=== PATIENT | male | born 1955 | race Caucasian/White ===

== ENCOUNTER 2018-04-29 06:45 | Day surgery (SDC) | payer MEDICARE, OTHER ==
[~2018-04-29] VITALS: Ht 170.2 cm; Wt 111.4 kg
[~2018-04-29 06:45] MED LIST: SODIUM CHLORIDE 0.9% 1,000 ML IV ONE
[2018-04-29] MEDS ORDERED: ATOR40TA28 PO (07:44)
[2018-04-29] MEDS ORDERED: GABA-531 PO (07:44)
[2018-04-29] MEDS ORDERED: ALBU8HFA IH (07:44)
[2018-04-29] MEDS ORDERED: METF10004 PO (07:44)
[2018-04-29] MEDS ORDERED: PRED10 PO (07:44)
[2018-04-29] MEDS ORDERED: BUDE10.2 IH (07:44)
[2018-04-29] MEDS ORDERED: HYDR25TA PO (07:44)
[2018-04-29] MEDS ORDERED: LISI-662 PO (07:44)
[2018-04-29] MEDS ORDERED: DOXY150T PO (07:44)
[2018-04-29] MEDS ORDERED: FURO20 PO (07:44)
[2018-04-29 07:48] LABS: GLUCOMETER DEV NAME(LOC) SDS 5; GLUCOSE,POINT OF CARE 196 MG/DL (70-110)
[2018-04-29] MEDS ORDERED: MIDAZOLAM HCL 2 MG/2 ML VIAL ONE (08:15)
[2018-04-29] MEDS ORDERED: FentaNYL CITRATE-PF 100 MCG/2 ML VIAL ONE (08:16)
[2018-04-29] MEDS ORDERED: MethylPREDNISolone SOD SUCC 125 MG/2 ML VIAL IVP ONE (09:15)
[2018-04-29] MEDS ORDERED: MethylPREDNISolone SOD SUCC 125 MG/2 ML VIAL ONE (09:41)
[2018-04-29] MEDS ORDERED: ALBUTEROL SULFATE 2.5 MG/0.5 ML NEB SOLUTION NEB ONE (12:00)
[2018-04-29] MEDS ORDERED: LIDOCAINE HCL 4% 50 ML SOLUTION TP ONE (12:00)
[2018-04-29] MEDS ORDERED: LIDOCAINE HCL 2% 30 ML JELLY TP ONE (12:00)
[2018-04-29] MEDS ORDERED: BENZOCAINE 20% 50 MCG/SPRAY 57 GM TP ONE (12:00)
[2018-04-29] MEDS ORDERED: OXYGEN THERAPY IH SCH (20:00)
== END 2018-04-29 10:25 | disposition home or self-care (01) ==
LOC: SURGERY 06:45
PROVIDERS: ATTEND Internal Medicine Critical Care Medicine
DX: J38.4 Edema of larynx (principal); B37.0 Candidal stomatitis; J44.9 Chronic obstructive pulmonary disease, unspecified; I10 Essential (primary) hypertension; E11.9 Type 2 diabetes mellitus without complications; K21.9 Gastro-esophageal reflux disease without esophagitis; M48.8X4 Other specified spondylopathies, thoracic region; Z79.82 Long term (current) use of aspirin; Z79.84 Long term (current) use of oral hypoglycemic drugs; Z79.4 Long term (current) use of insulin; Z79.52 Long term (current) use of systemic steroids; Z79.2 Long term (current) use of antibiotics; Z87.891 Personal history of nicotine dependence; Z72.89 Other problems related to lifestyle; Z98.890 Other specified postprocedural states; Z79.899 Other long term (current) drug therapy
CPT/HCPCS: 31623; 31624; 71045; 82962; 87015; 87070; 87101; 87147; 87205; 87206; 87220; 88108; 88184; 88185; 88312; J2250; J2930; J3010; J7030